=== PATIENT | female | born 1980 | race Caucasian/White ===

== ENCOUNTER 2024-02-10 10:10 | Observation (INO) | payer OTHER, SELFPAY ==
[2024-02-10 10:40] VITALS: BP 143/88; BMI 29.3
== END 2024-02-10 12:46 | disposition home or self-care (01) ==
LOC: LDRP 10:10
PROVIDERS: ADMITTING PHYSICIAN Obstetrics & Gynecology
DX: O36.8130 Decreased fetal movements, third trimester, not applicable or unspecified (principal); Z3A.37 37 weeks gestation of pregnancy; O99.013 Anemia complicating pregnancy, third trimester; D64.9 Anemia, unspecified; O99.343 Other mental disorders complicating pregnancy, third trimester; F32.A Depression, unspecified; F41.9 Anxiety disorder, unspecified; Z80.3 Family history of malignant neoplasm of breast; Z86.16 Personal history of COVID-19
CPT/HCPCS: 59025; 76815; G0378

== ENCOUNTER 2024-02-19 08:32 | Inpatient (IN) | payer OTHER, SELFPAY ==
[2024-02-19] MEDS: LR 1000 IV ×2 (08:30→09:19)
[2024-02-19 08:37] VITALS: BP 144/79; BMI 26.9
[2024-02-19] MEDS: PITOCIN 30 UNITS/NSS 500 ML IV ×2 (09:15→15:43)
[2024-02-19 09:36] LABS: % Basophils 0.3 % (0-2); % Eosinophils 1.4 % (0-6); % Immature Granulocytes 1.2 % (0-0.5); % Lymphocytes 23.8 % (20.5-51.1); % Neutrophils 65.3 % (42.2-75.2); Absolute Eosinophils 0.1 10^3/uL (0-0.7); Absolute Immature Granulocytes 0.1 10^3/uL (0-0.05); Absolute Lymphocytes 2.2 10^3/uL (1.2-3.4); Absolute Monocytes 0.7 10^3/uL (0.1-0.6); Absolute Neutrophils 6.1 10^3/uL (1.4-6.5); Hematocrit 36.6 % (37.0-47.0); Hemoglobin 12.8 g/dL (12.0-16.0); Mean Corpuscular Hgb 31.3 pg (27.0-31.0); Mean Corpuscular Volume 89.5 fL (81.0-99.0); Mean Platelet Volume 12.7 fL (7.4-10.4); Nucleated Red Blood Cells % 0 %; Platelet Count 184 10^3/uL (130-400); Red Blood Cell Count 4.09 10^6/uL (4.20-5.40); Red Cell Dist. Width 13.2 % (11.5-14.5); White Blood Cell Count 9.3 10^3/uL (4.8-10.8)
[2024-02-19] MEDS: SUBLIMAZE 100 MCG EPIDURAL (12:15)
[2024-02-19] MEDS: FENTANYL/BUPIVACAINE 100 EPIDURAL (12:15)
[2024-02-19 12:34] LABS: ALT (SGPT) 14 U/L (0-35); AST (SGOT) 16 U/L (14-36); Albumin 3.5 g/dl (3.5-5.0); Alkaline Phosphatase 137 U/L (38-126); Blood Urea Nitrogen 11 mg/dl (7-17); Calcium 9.1 mg/dl (8.4-10.2); Carbon Dioxide 22 mmol/L (22-30); Chloride 106 mmol/L (98-107); Estimated Creatinine Clearance 109 ml/min; Glucose 81 mg/dl (70-99); Potassium 4.3 mmol/L (3.5-5.1); Sodium 134 mmol/L (135-145); Total Bilirubin 0.3 mg/dl (0.2-1.3); Total Protein 6.2 g/dl (6.3-8.2); eGFR > 60.00
[2024-02-19] MEDS: SENOKOT-S 1 TABLET PO (17:01)
[2024-02-19] MEDS: MOTRIN 600 MG PO ×2 (17:01→23:10)
[2024-02-20] MEDS: MOTRIN 600 MG PO ×3 (05:19→21:52)
[2024-02-20 05:29] LABS: Hematocrit 31.2 % (37.0-47.0); Hemoglobin 10.9 g/dL (12.0-16.0)
[2024-02-20] MEDS: FEOSOL 325 MG PO (08:42)
[2024-02-20] MEDS: TYLENOL 650 MG PO ×2 (13:46→21:53)
[2024-02-20] MEDS: SENOKOT-S 1 TABLET PO (13:46)
[2024-02-21] MEDS: FEOSOL 325 MG PO (08:04)
[2024-02-21] MEDS: SENOKOT-S 1 TABLET PO (08:04)
[2024-02-21] MEDS: MOTRIN 600 MG PO (11:48)
[2024-02-22 16:30] LABS: Syphilis/T. pallidum Ab Reflex Negative (Negative)
== END 2024-02-21 14:15 | disposition home or self-care (01) | DRG 807 ==
LOC: LDRP 08:32
PROVIDERS: ADMITTING PHYSICIAN Obstetrics & Gynecology
PROC: 10E0XZZ Delivery of Products of Conception, External Approach (ICD-10-PCS; 2024-02-19)
PROC: 3E033VJ Introduction of Other Hormone into Peripheral Vein, Percutaneous Approach (ICD-10-PCS; 2024-02-19)
PROC: 0KQM0ZZ Repair Perineum Muscle, Open Approach (ICD-10-PCS; 2024-02-19)
DX: O13.4 Gestational [pregnancy-induced] hypertension without significant proteinuria, complicating childbirth (principal); Z37.0 Single live birth; O76 Abnormality in fetal heart rate and rhythm complicating labor and delivery; O69.81X0 Labor and delivery complicated by cord around neck, without compression, not applicable or unspecified; O70.1 Second degree perineal laceration during delivery; Z3A.39 39 weeks gestation of pregnancy
CPT/HCPCS: 88307; 80053; 85014; 85018; 85025; 86780; 86850; 86900; 86901; 93971

== ENCOUNTER 2024-02-24 11:28 | Observation (INO) | payer OTHER, SELFPAY ==
[2024-02-24 11:47] VITALS: BP 163/96; BMI 24.2
[2024-02-24 12:37] LABS: % Basophils 0.4 % (0-2); % Eosinophils 3.1 % (0-6); % Immature Granulocytes 1.2 % (0-0.5); % Lymphocytes 23.1 % (20.5-51.1); % Monocytes 5.3 % (1.7-9.3); % Neutrophils 66.9 % (42.2-75.2); Absolute Eosinophils 0.3 10^3/uL (0-0.7); Absolute Immature Granulocytes 0.1 10^3/uL (0-0.05); Absolute Monocytes 0.5 10^3/uL (0.1-0.6); Absolute Neutrophils 5.7 10^3/uL (1.4-6.5); Hematocrit 33.8 % (37.0-47.0); Hemoglobin 11.9 g/dL (12.0-16.0); Mean Corp Hgb Conc. 35.2 g/dL (33.0-37.0); Mean Corpuscular Hgb 30.8 pg (27.0-31.0); Mean Corpuscular Volume 87.6 fL (81.0-99.0); Mean Platelet Volume 11.1 fL (7.4-10.4); Nucleated Red Blood Cells % 0 %; Platelet Count 286 10^3/uL (130-400); Red Blood Cell Count 3.86 10^6/uL (4.20-5.40); Red Cell Dist. Width 13.2 % (11.5-14.5); White Blood Cell Count 8.5 10^3/uL (4.8-10.8)
[2024-02-24 12:44] LABS: ALT (SGPT) 26 U/L (0-35); AST (SGOT) 21 U/L (14-36); Albumin 3.7 g/dl (3.5-5.0); Alkaline Phosphatase 107 U/L (38-126); Blood Urea Nitrogen 17 mg/dl (7-17); Calcium 9.6 mg/dl (8.4-10.2); Carbon Dioxide 23 mmol/L (22-30); Chloride 107 mmol/L (98-107); Estimated Creatinine Clearance 97 ml/min; Glucose 91 mg/dl (70-99); Potassium 4.5 mmol/L (3.5-5.1); Sodium 135 mmol/L (135-145); Total Bilirubin 0.3 mg/dl (0.2-1.3); Total Protein 6.6 g/dl (6.3-8.2); eGFR > 60.00
[2024-02-24] MEDS: ADALAT 10 MG PO (12:59)
[2024-02-24] MEDS: MOTRIN 600 MG PO (15:30)
[2024-02-24] MEDS: TYLENOL 1000 MG PO (18:11)
== END 2024-02-24 20:50 | disposition home or self-care (01) ==
LOC: LDRP 11:28
PROVIDERS: ADMITTING PHYSICIAN Obstetrics & Gynecology
DX: O13.5 Gestational [pregnancy-induced] hypertension without significant proteinuria, complicating the puerperium (principal); R51.9 Headache, unspecified
CPT/HCPCS: 80053; 85025; G0378

== ENCOUNTER 2024-07-03 22:43 | Emergency (ER) | payer OTHER, SELFPAY ==
[2024-07-03 22:49] VITALS: BP 163/93
--- NOTE | 2024-07-03 23:24 | ED.GENMED ---
History of Present Illness
General
Chief Complaint: Blood Pressure Problem
Source: patient
Exam Limitations: none
Time Seen by Provider: 07/03/24 23:02
Nursing documentation reviewed up to this point in time: agreed with
History of Present Illness
History of Present Illness:
Patient presents to ED secondary to recurrent 'brain fogginess' along with elevated blood pressure when checked at home. Patient reports having had similar symptoms, soon after giving to her child, who is currently 4 months old. Patient was
evaluated by her building certifier and was treated with 1 dose of Cardizem. Since then, patient has had follow-up with her primary care physician and her blood pressure has been normal, including 3 weeks ago. Denies headache. Denies blurred vision.
Denies dizziness. Denies loss of sensation or weakness. Denies chest pain or palpitations. Denies nausea or vomiting. Denies recent change in medications or diet. Patient has returned back to work 3 weeks ago, working mostly at nights, and
taking calls overnight. Patient does not get regular sleep, does not feel extremely fatigued during the day. Patient has been eating normally, but admits, not as well as she could, which she was doing when she was breast-feeding. Of note, patient
states that she was treated for low testosterone level 2 years ago, when she was experiencing similar symptoms.
Past History
Past History
ED Past Medical History: None
ED Past Surgical History: None
Social History
Tobacco: Non-smoker
Alcohol: None
Drug: None
Employment: Employed
Review of Systems
Review of Systems
Allergies reviewed?: Yes
All Other Systems: ROS reviewed and negative except as documented in HPI and ROS
Constitutional: Reports no symptoms
EENT: Reports no symptoms
Respiratory: Reports no symptoms
Cardiac: Reports no symptoms
ABD/GI: Reports no symptoms
: Reports no symptoms
Musculoskeletal: Reports no symptoms
Skin: Reports no symptoms
Neurological: Reports no symptoms; Denies dizzy or headache
Phy Exam
Physical Exam
Physical Exam:
Physical Exam
General: no apparent distress, not acutely ill. afebrile
Head: nc/at. eomi
Neck: supple. normal range of motion.
Heart: s1/s2 regular rate and rhythm, no murmur. equal radial pulses.
Lungs: no acute respiratory distress. clear bilaterally
Abdomen: normal bowel sounds. not tender.
Neuro: alert and oriented. no focal neurological deficits
Skin: no rash
Psychiatric: well kept. interactive and cooperative
Extremities: no edema. no calf tenderness.
Course
Orders/Labs/Results
Orders:
Orders
07/03/24 23:22
Urinalysis Reflex To Culture Urgent
Date Specimen was Collected: 07/03/24
Time Specimen was Collected: 23:29
Test Result ONCE
07/03/24 23:38
Complete Blood Count/No Diff Urgent
Comprehensive Metabolic Panel Urgent
HCG, Serum Qualitative Screen Urgent
Magnesium Urgent
TSH Urgent
Testosterone Free&Tot (Female) [S] Urgent
Abnormal Lab Results
07/03/24
23:38
Hct 36.3 L %
(37.0-47.0)
Glucose 104 H mg/dl
(70-99)
07/03/24 23:38
07/03/24 23:38
Vital Signs
Initial and Last Documented VS:
Initial Vital Signs
Temp Pulse Resp BP Pulse Ox
98.5 F 74 20 163/93 100
07/03/24 22:49 07/03/24 22:49 07/03/24 22:49 07/03/24 22:49 07/03/24 22:49
Last Documented Vital Signs
Temp Pulse Resp BP Pulse Ox
98.5 F 92 24 110/68 98
07/03/24 22:49 07/04/24 01:17 07/04/24 01:17 07/04/24 01:00 07/04/24 01:00
MDM/Problems Addressed
MDM/Problems Addressed:
Patient with normalization of blood pressure during observation ED, along with an unremarkable workup. Patient's presenting symptoms likely multifactorial, with possible transient fluctuation of blood pressure, contributory symptoms, although her
current circumstances, including recent of her child as well as returning back to her job, may be contribute to her symptoms as well. As such, at this time decision made to discharge patient home with any further workup or treatment, with
recommendation to follow-up PCP for reevaluation. Patient will follow-up on already ordered testosterone level, upon discharge.
*Critical Care Note
Total Time (30-74mins, 75-104mins- exclusive of procedures): Not Applicable
ED Attending Note
-
Portions of this chart may have been created with voice recognition software.� Occasional wrong word or��sound alike� substitutions may have occurred due to the inherent limitations of voice recognition software.
Discharge Plan
Departure
Patient Disposition: Home (Routine Discharge)
Date of Disposition: 07/04/24
Time of Disposition: 00:52
Patient with high blood pressure during this ER visit?: Yes
Condition: Good
Discharge Problem:
Hypertension
Instructions: High Blood Pressure (DC)
Prescriptions:
No Action
[id number] 1 mg Tablet
1 tab PO DAILY
acetaminophen 325 mg Tablet
650 mg PO Q4HPRN PRN (Reason: mild pain) Qty: 0 0RF
ibuprofen 600 mg Tablet
600 mg PO Q6HPRN PRN (Reason: moderate pain/cramps) Qty: 0 0RF
Referrals:
Moy Sheldon MD [Family Provider] -
Activity Restrictions/Additional Instructions:
As discussed, please follow-up with your primary care physician for reevaluation. Your free and total testosterone level is pending, as it is a send out test.
Interventions
Interventions:
*Risk Screen - Suicide Last Done: 07/03/24 22:49
*General Assessment Last Done: 07/03/24 22:49
*Neglect/Abuse Screening Last Done: 07/03/24 22:49
ED- Fall Risk Assessment Last Done: 07/03/24 22:49
*ED COVID-19 Vaccine History Last Done: 07/03/24 22:49
ED- Cardiac Assessment Last Done: 07/03/24 23:43
ED- Neurological Assessment Last Done: 07/03/24 23:43
ED- Pulmonary Assessment Last Done: 07/03/24 23:43
Discharge Date and Time
Print Language: NEPALI
[2024-07-03 23:26] VITALS: BP 145/106
[2024-07-03 23:42] VITALS: BMI 22.8
[2024-07-03 23:49] LABS: Hematocrit 36.3 % (37.0-47.0); Mean Corp Hgb Conc. 35.8 g/dL (33.0-37.0); Mean Corpuscular Hgb 30.7 pg (27.0-31.0); Mean Corpuscular Volume 85.8 fL (81.0-99.0); Mean Platelet Volume 10.2 fL (7.4-10.4); Platelet Count 262 10^3/uL (130-400); Red Blood Cell Count 4.23 10^6/uL (4.20-5.40); Red Cell Dist. Width 12.3 % (11.5-14.5); White Blood Cell Count 10.2 10^3/uL (4.8-10.8)
[2024-07-04] VITALS: BP 115/79
[2024-07-04 00:03] LABS: ALT (SGPT) 21 U/L (0-35); AST (SGOT) 20 U/L (14-36); Albumin 4.4 g/dl (3.5-5.0); Alkaline Phosphatase 83 U/L (38-126); Blood Urea Nitrogen 16 mg/dl (7-17); Calcium 9.8 mg/dl (8.4-10.2); Carbon Dioxide 22 mmol/L (22-30); Chloride 105 mmol/L (98-107); Estimated Creatinine Clearance 82 ml/min; Glucose 104 mg/dl (70-99); Magnesium 1.9 mg/dl (1.6-2.3); Potassium 3.9 mmol/L (3.5-5.1); Sodium 137 mmol/L (135-145); Total Bilirubin 0.2 mg/dl (0.2-1.3); eGFR > 60.00
[2024-07-04 00:07] LABS: HCG, Serum Qualitative Screen Negative
[2024-07-04 00:33] VITALS: BP 128/78
[2024-07-04 00:40] LABS: TSH 1.83 uIU/ml (0.47-4.68)
[2024-07-04 00:45] LABS: Urine Albumin Negative (Neg - Trace); Urine Bilirubin Negative (Negative); Urine Character Clear (Clear); Urine Color Yellow; Urine Glucose Negative (Negative); Urine Ketone Negative (Negative); Urine Leukocyte Negative (Negative); Urine Nitrite Negative (Negative); Urine Occult Blood Negative (Negative); Urine Urobilinogen Negative (Neg - 1+)
[2024-07-04 01:00] VITALS: BP 110/68
== END 2024-07-04 02:15 | disposition home or self-care (01) ==
LOC: EMR 22:43
PROVIDERS: EMERGENCY PHYSICIAN Emergency Medicine; FAMILY PHYSICIAN Internal Medicine
DX: I10 Essential (primary) hypertension (principal)
CPT/HCPCS: 99283; 80053; 81003; 83735; 84270; 84402; 84403; 84443; 84703; 85027

== ENCOUNTER 2024-09-15 16:51 | Outpatient (RCR) | payer OTHER, SELFPAY | END 2024-09-15 23:59 | disposition home or self-care (01) | LOC: RPT 16:51 | PROVIDERS: ATTENDING PHYSICIAN Obstetrics & Gynecology; FAMILY PHYSICIAN Internal Medicine | DX: N32.81 Overactive bladder (principal); N81.11 Cystocele, midline; N81.6 Rectocele; M62.89 Other specified disorders of muscle; R10.2 Pelvic and perineal pain; Z73.6 Limitation of activities due to disability | CPT/HCPCS: 97110; 97140; 97161; 97530 ==

== ENCOUNTER 2024-10-06 13:00 | Outpatient (RCR) | payer OTHER, SELFPAY | END 2024-10-06 23:59 | disposition home or self-care (01) | LOC: RPT 13:00 | PROVIDERS: ATTENDING PHYSICIAN Obstetrics & Gynecology; FAMILY PHYSICIAN Internal Medicine | DX: N32.81 Overactive bladder (principal); N81.11 Cystocele, midline; N81.6 Rectocele; M62.89 Other specified disorders of muscle; R10.2 Pelvic and perineal pain; Z73.6 Limitation of activities due to disability | CPT/HCPCS: 97110; 97112; 97140; 97530 ==

== ENCOUNTER 2025-04-20 18:31 | Emergency (ER) | payer OTHER, SELFPAY ==
[2025-04-20 18:34] VITALS: BP 125/88
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
[2025-04-20 20:41] VITALS: BMI 18.6
== END 2025-04-20 20:59 | disposition home or self-care (01) ==
LOC: EMR 18:31
PROVIDERS: EMERGENCY PHYSICIAN Emergency Medicine; FAMILY PHYSICIAN Internal Medicine
DX: Z13.30 Encounter for screening examination for mental health and behavioral disorders, unspecified (principal); E03.9 Hypothyroidism, unspecified; I10 Essential (primary) hypertension; Z63.0 Problems in relationship with spouse or partner
CPT/HCPCS: 99283